=== PATIENT | male | born 1975 | race American Indian/Alaskan Native ===

== ENCOUNTER 2018-08-29 09:15 | Day surgery (SDC) | payer BC ==
[~2018-08-29 09:15] MED LIST: ANCEF/STERILE WATER 2 GM/20 ML 2 GM/20 ML SYRINGE IV NR; NEURONTIN PO SCH; TYLENOL PO SCH
--- NOTE | 2018-08-29 09:45 | Short Stay Summary ---
Short Stay Documentation Date of service: 08/29/18 - History H&P: obtained from office - Allergies and Medications Current Medications: Allergies No Known Allergies Allergy (Verified 08/26/18 15:20) Home Medications Medication Instructions Recorded Confirmed Last Taken Type Lisinopril [Zestril] 20 mg PO QDAY 08/26/18 08/26/18 Unknown History Rosuvastatin Calcium [Crestor] 40 mg PO QHS 08/26/18 08/26/18 Unknown History Active Medications Acetaminophen (Tylenol) 1,000 mg PO PREOP ALANA Stop: 08/29/18 13:00 Celecoxib (Celebrex) 200 mg PO PREOP NR Stop: 08/29/18 16:00 Gabapentin (Neurontin) 600 mg PO PREOP ALANA Stop: 08/29/18 16:30 Cefazolin Sodium (Ancef/Sterile Water 2 Gm/20 Ml) 2 gm in 20 mls @ 80 mls/hr IV PREOP NR; Protocol Stop: 08/29/18 16:00 - Physical exam General appearance: no acute distress Lungs: Normal air movement Neurological: Normal speech - Brief post op/procedure progress note Date of procedure: 08/29/18 (dictation:[id number]) Pre-op diagnosis: perineal abscess Post-op diagnosis: same Procedure: 1) EUA 2) bilateral pudendal nerve blocks 3) I&D with debridement of perineal abscess [id number] EBL - min Anesthesia: GETA Findings: chronic inflammatory tissue Surgeon: MANDEEP NORWOOD Estimated blood loss: minimal Pathology: none Condition: stable - Hospital course Hospital course: uneventful - Disposition Condition at discharge: Stable Disposition: [id number]-01 TO HOME OR SELFCARE Short Stay Discharge Plan Wound: open to air, keep clean and dry Additional Instructions: Post Operative Instructions No driving until cleared by surgeon. May shower tomorrow. Pat dry the wound or wounds. After surgery, start with a light diet. Consider having a liquid diet first. If you do well, you can advance to a regular diet as you feel comfortable. Apply an ice pack to the wound or wounds for 10-20 minutes at a time. Do this at least 4-5 times a day. You can do it more if he would like. Alternate the use of ibuprofen and Tylenol for the first 2 days. I want you to take these on a scheduled basis. Take 600 mg of ibuprofen every 6 hours. Take 500 mg of Tylenol every 6 hours. You should alternate these 2 medicines. In other words, beginning with the ibuprofen. After 3 hours, take the Tylenol. Keep alternating the 2 drugs every 3 hours. Do this on a scheduled basis for the first 2 days. After that, you can take them as needed. It is very important that you use the prescription pain medicine only for very severe pain. Do not take the prescription medicine before you try using the ibuprofen and Tylenol. We will call you in a couple of days to see how youre doing. If you have any questions or concerns, always feel free to call the clinic at any time. FOLLOW SURGEON INSTRUCTION. CALL FOR F/U APPT. Follow up with: VINCENT ROSAS MD [Primary Care Provider] - 7 Days MANDEEP NORWOOD MD [Staff Physician] - 7 Days Forms: Work/School Excuse Out Patient, Outpatient Surgery DC Inst. Prescriptions: oxyCODONE /ACETAMINOPHEN [Percocet 5/325] 2 tab PO Q6HR PRN #40 tablet PRN Reason: Pain , Severe (7-10)
[2018-08-29] MEDS ORDERED: LACTATED RINGERS 1,000 ML ONE (10:07)
--- NOTE | 2018-08-29 10:07 | Anesthesia Consultation ---
Anesthesia Consult and Med Hx Date of service: 08/29/18 - Airway Anesthetic Teeth Evaluation: Good ROM Head & Neck: Adequate Mental/Hyoid Distance: Adequate Mallampati Class: Class IV Intubation Access Assessment: Possibly Difficult - Pulmonary Exam CTA: Yes - Cardiac Exam Cardiac Exam: RRR - Pre-Operative Health Status ASA Pre-Surgery Classification: ASA2 Proposed Anesthetic Plan: General - Pulmonary Hx Smoking: Yes (CIGARS SINCE 2013) Hx Respiratory Symptoms: No SOB: No - Cardiovascular System Hx Hypertension: Yes (last dose lisinopril 08/27/18) Hx Heart Attack/AMI: No Hx Percutaneous Transluminal Coronary Angioplasty (PTCA): No Hx Cardia Arrhythmia: No - Central Nervous System Hx Seizures: No CVA: No Hx Psychiatric Problems: No - Gastrointestinal Hx Gastroesophageal Reflux Disease: No - Endocrine Hx Renal Disease: No Hx Liver Disease: No Hx Insulin Dependent Diabetes: No Hx Non-Insulin Dependent Diabetes: No Hx Thyroid Disease: No - Other Systems Hx Obesity: Yes - Additional Comments Anesthesia Medical History Comments: No prior GA. No FHx anesthetic complications.
--- NOTE | 2018-08-29 10:07 | Anesthesia Day of Surgery ---
Anesthesia Day of Surgery - Day of Surgery Patient Examined: Yes Patient H&P Reviewed: Yes Patient is NPO: Yes
[2018-08-29] MEDS ORDERED: LACTATED RINGERS 1,000 ML IV SCH (10:20)
[2018-08-29] MEDS ORDERED: VERSED IV NR (11:00)
[2018-08-29] MEDS ORDERED: DILAUDID IV PRN (11:00)
[2018-08-29] MEDS ORDERED: DIPRIVAN 10 MG/ML IV ONE (11:10)
[2018-08-29] MEDS ORDERED: SUBLIMAZE ONE (11:10)
[2018-08-29] MEDS ORDERED: XYLOCAINE MPF 2% ONE (11:10)
[2018-08-29] MEDS ORDERED: ZOFRAN ONE (11:27)
[2018-08-29] MEDS ORDERED: XYLOCAINE 1% 20 mL ONE (11:37)
[2018-08-29] MEDS ORDERED: MARCAINE 0.5% INFILTRATI ONE ×2 (11:37→11:38)
[2018-08-29] MEDS ORDERED: XYLOCAINE 1% 20 mL INFILTRATI ONE (11:38)
[2018-08-29] MEDS ORDERED: TORADOL ONE (12:10)
[2018-08-29 13:25] VITALS: BP 137/91
--- NOTE | 2018-08-31 15:32 | Operative Report ---
PREOPERATIVE DIAGNOSIS: Perineal abscess. POSTOPERATIVE DIAGNOSES: Chronic perineal abscess. PROCEDURES: 1. Exam under anesthesia. 2. Bilateral pudendal nerve blocks. 3. Incision, drainage, and debridement of chronic perineal abscess. ATTENDING PHYSICIAN: Jennifer Soriano MD ANESTHESIA: General. ESTIMATED BLOOD LOSS: Minimal. FLUIDS: 800 mL FINDINGS: Chronic inflammatory tissue at the base of the cavity. No evidence of any purulent material. No tracts or extension into the surrounding area. SPECIMENS: None. DRAINS: Quarter-inch [place] was sutured in to hold the skin open. COMPLICATIONS: None. DISPOSITION: Stable, transferred to Recovery Room. INDICATIONS: This is a 43-year-old male who we have followed in the clinic for recurrent perineal abscesses. He has had multiple incision and drainages. We have recommended in the past to have a formal exam under anesthesia and then complete incision and drainage. The patient has finally agreed. Procedure, risks, and benefits were explained to the patient. Risks included but were not limited to infection, bleeding, pain, injury to surrounding structures, possible need for further procedures in the future. The patient understood and consented. DESCRIPTION OF PROCEDURE: The patient was brought to the operating room and placed on the table in supine position. After adequate general anesthesia was established, the patient was placed in the lithotomy position. Sterile prep and drape was performed. SCDs were in place. Antibiotics had been given. Time-out was called. I began by doing an external exam. I saw no abnormalities other than the mild swelling in the perineal body region. There was no evidence of any involvement of the scrotum. There was no evidence of involvement of the rectal area. Digital exam was done of the anorectal area. I found no abnormalities by palpation. I then proceeded to do bilateral pudendal nerve blocks. Via combination of internal and external exam, I identified the ischial spines on either side. I advanced the needle to the spine, pulled back, make sure we did not aspirate any blood and then injected 10 mL of 0.5% Marcaine and 1% lidocaine plain into each side. I then proceeded to make a vertical incision in the area of the recurrent infection. I made a small incision first at the top. Probe was inserted. It did not extend to the sides or into the deep tissue. I advanced it towards the rectum in a vertical manner and then incised the skin overlying it. We incised the skin only. We did not have to go any deeper and so our deepest portion was in the subcutaneous level. I found a moderate amount of chronic inflammatory tissue. We used a curette to remove most of the tissue and then I cauterized the entire base. There was some mild oozing as expected with chronic inflammatory tissue. Again, there was no extension deep or to the sides. I placed Surgicel at the base and then a quarter-inch [place] over the top. I sutured the [place] with two stitches using 3-0 nylon to secure to the skin edges. We then placed dressings. The patient tolerated the procedure well. There were no complications. All counts were correct at the end of the case. JOB# [id number] MARIA LUZ/ARIANE
== END 2018-08-29 14:10 | disposition home or self-care (01) ==
LOC: OR 09:15
PROVIDERS: ATTEND Surgery
DX: L02.215 Cutaneous abscess of perineum (principal); E78.00 Pure hypercholesterolemia, unspecified; I10 Essential (primary) hypertension; F17.210 Nicotine dependence, cigarettes, uncomplicated; E66.9 Obesity, unspecified; Z72.89 Other problems related to lifestyle; Z98.890 Other specified postprocedural states; Z79.899 Other long term (current) drug therapy
CPT/HCPCS: 11042; 64430; J0690; J1885; J2250; J2405; J2704; J3010; J7120; 64450

== ENCOUNTER 2018-09-12 10:22 | Outpatient (CLI) | payer BC ==
[2018-09-12] MEDS ORDERED: XYLOCAINE TOPICAL 4% TP ONE (10:39)
== END 2018-09-12 10:23 | disposition home or self-care (01) ==
LOC: WOUND 10:22
PROVIDERS: ATTEND Surgery
DX: T81.89XA Other complications of procedures, not elsewhere classified, initial encounter (principal); I10 Essential (primary) hypertension; E78.00 Pure hypercholesterolemia, unspecified; F17.200 Nicotine dependence, unspecified, uncomplicated; Y83.8 Other surgical procedures as the cause of abnormal reaction of the patient, or of later complication, without mention of misadventure at the time of the procedure; Y92.89 Other specified places as the place of occurrence of the external cause
CPT/HCPCS: 11042; G0463; 99215

== ENCOUNTER 2018-09-21 11:10 | Outpatient (CLI) | payer BC ==
[2018-09-21] MEDS ORDERED: XYLOCAINE TOPICAL 4% TP ONE (11:32)
== END 2018-09-21 11:11 | disposition home or self-care (01) ==
LOC: WOUND 11:10
PROVIDERS: ATTEND Surgery
DX: T81.89XD Other complications of procedures, not elsewhere classified, subsequent encounter (principal); I10 Essential (primary) hypertension; E78.00 Pure hypercholesterolemia, unspecified; F17.200 Nicotine dependence, unspecified, uncomplicated; Y83.8 Other surgical procedures as the cause of abnormal reaction of the patient, or of later complication, without mention of misadventure at the time of the procedure
CPT/HCPCS: 99215; G0463

== ENCOUNTER 2018-09-30 11:20 | Outpatient (CLI) | payer BC | END 2018-09-30 11:21 | disposition home or self-care (01) | LOC: WOUND 11:20 | PROVIDERS: ATTEND Surgery | DX: T81.89XD Other complications of procedures, not elsewhere classified, subsequent encounter (principal); I10 Essential (primary) hypertension; E78.00 Pure hypercholesterolemia, unspecified; F17.200 Nicotine dependence, unspecified, uncomplicated; Y83.8 Other surgical procedures as the cause of abnormal reaction of the patient, or of later complication, without mention of misadventure at the time of the procedure | CPT/HCPCS: 99212; G0463 ==

== ENCOUNTER 2018-10-07 13:01 | Outpatient (CLI) | payer BC | END 2018-10-07 13:02 | disposition home or self-care (01) | LOC: WOUND 13:01 | PROVIDERS: ATTEND Surgery | DX: T81.89XD Other complications of procedures, not elsewhere classified, subsequent encounter (principal); I10 Essential (primary) hypertension; E78.00 Pure hypercholesterolemia, unspecified; F17.200 Nicotine dependence, unspecified, uncomplicated; Y83.8 Other surgical procedures as the cause of abnormal reaction of the patient, or of later complication, without mention of misadventure at the time of the procedure ==

== ENCOUNTER 2018-10-14 13:15 | Outpatient (CLI) | payer BC | END 2018-10-14 13:16 | disposition home or self-care (01) | LOC: WOUND 13:15 | PROVIDERS: ATTEND Surgery | DX: T81.89XD Other complications of procedures, not elsewhere classified, subsequent encounter (principal); I10 Essential (primary) hypertension; E78.00 Pure hypercholesterolemia, unspecified; F17.200 Nicotine dependence, unspecified, uncomplicated; Y83.8 Other surgical procedures as the cause of abnormal reaction of the patient, or of later complication, without mention of misadventure at the time of the procedure | CPT/HCPCS: 99212; G0463 ==